=== PATIENT | female | born 1950 | race Caucasian/White ===

== ENCOUNTER 2021-02-12 13:50 | Emergency (ER) | payer MEDICARE, OTHER ==
--- NOTE | 2021-02-12 14:02 | ED Physician Documentation ---
PD HPI CHEST PAIN - Stated complaint Stated Complaint: HIGH BLOOOD PRESURE - Chief complaint Chief Complaint: Cardiac - History obtained from History obtained from: Patient - History of Present Illness Timing - onset: How many hours ago (5), Today Timing - onset during: Light activity (eating breakfast) Timing - duration: Hours (5) Timing - details: Abrupt onset, Still present (onset this morning of feeling of pain and pressure in chest, with subsequent extension to neck/back of head, and feeling lightheaded. 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 Had 6 month follow up stress test in Oct that was normal. Then she moved here.), Waxing and waning Quality: Tightness, Aching, Pain Location: Substernal, Upper back Radiation: Neck (left and right back of neck) Worsened by: No: Exertion, Inspiration Associated symptoms: Shortness of air, Feeling faint / dizzy, General Weakness, Palpitations. No: Nausea, Vomiting Similar symptoms before: Diagnosis (similar to her IL last year.) Recently seen: Clinic (regular PMD visit month or so ago for meds renewals.) Review of Systems Constitutional: denies: Fever, Chills Nose: denies: Rhinorrhea / runny nose, Congestion Throat: denies: Sore throat Cardiac: reports: Chest pain / pressure, Palpitations. denies: Pedal edema, Calf pain Respiratory: reports: Dyspnea. denies: Cough, Wheezing GI: denies: Nausea, Vomiting PD PAST MEDICAL HISTORY - Past Medical History Cardiovascular: IL Respiratory: None Neuro: None Endocrine/Autoimmune: None - Present Medications Home Medications: Ambulatory Orders Medication Instructions Recorded Confirmed ARIPiprazole [Abilify Mycite] 2 mg PO DAILY 02/12/21 02/12/21 Aspirin Chewable [[place] 81 mg PO DAILY 02/12/21 02/12/21 Aspirin] Atorvastatin Calcium [Lipitor] 80 mg PO DAILY 02/12/21 02/12/21 Clopidogrel [Plavix] 75 mg PO DAILY 02/12/21 02/12/21 Metoprolol Succinate [Toprol Xl] 25 mg PO DAILY 02/12/21 02/12/21 Ondansetron Odt [Zofran] 4 mg TL Q6H PRN #10 tablet 02/12/21 Venlafaxine HCl [Effexor Xr] 75 mg PO DAILY 02/12/21 02/12/21 - Allergies Allergies/Adverse Reactions: Allergies Allergy/AdvReac Type Severity Reaction Status Date / Time Sulfa (Sulfonamide Allergy Rash Verified 02/12/21 14:00 Antibiotics) - Living Situation Living Situation: reports: With family Living Arrangement: reports: At home - Social History Does the pt smoke?: No Does the pt drink ETOH?: No Does the pt have substance abuse?: No - Family History Family history: reports: CAD PD ED PE NORMAL - Vitals Vital signs reviewed: Yes - General General: Alert and oriented X 3, No acute distress, Well developed/nourished - HEENT HEENT: Moist mucous membranes, Pharynx benign - Neck Neck: Supple, no meningeal sign, No adenopathy - Cardiac Cardiac: RRR, No murmur - Respiratory Respiratory: Clear bilaterally, Other (no chestwall tenderness) - Abdomen Abdomen: Soft, Non tender - Derm Derm: Normal color, Warm and dry - Extremities Extremities: No edema, No calf tenderness / cord - Neuro Neuro: Alert and oriented X 3, No motor deficit, Normal speech Results - Vitals Vitals: Vital Signs - 24 hr 02/12/21 02/12/21 02/12/21 13:54 14:04 14:38 Temperature 37.2 C 99.0 C H Heart Rate 100 100 92 Respiratory 20 18 14 Rate Blood Pressure 150/108 H 150/94 H 151/88 H O2 Saturation 100 100 98 02/12/21 02/12/21 02/12/21 14:59 15:00 15:30 Temperature Heart Rate 108 H 101 H 101 H Respiratory 18 14 16 Rate Blood Pressure 118/78 114/81 H 132/80 H O2 Saturation 98 96 96 02/12/21 02/12/21 02/12/21 16:00 16:43 17:02 Temperature 36.3 C L 36.7 C Heart Rate 97 96 92 Respiratory 18 14 24 Rate Blood Pressure 126/81 H 114/86 H 126/86 H O2 Saturation 97 97 98 Oxygen O2 Source Room air - EKG (time done) on arival Rhythm: NSR Central: Normal Intervals: Normal [place] QRS: Normal Ischemia: Normal ST segments. No: ST elevation c/w ischemia, ST depression - Labs Labs: Laboratory Tests 02/12/21 02/12/21 02/12/21 14:05 14:05 14:05 WBC 7.6 RBC 4.53 Hgb 14.5 Hct 44.0 MCV 97.1 MCH 32.0 H MCHC 33.0 RDW 12.4 Plt Count 302 MPV 9.9 Neut # (Auto) 5.5 Lymph # (Auto) 1.6 [place] # (Auto) 0.4 Eos # (Auto) 0.1 Baso # (Auto) 0.1 Absolute Nucleated RBC 0.00 Nucleated RBC % 0.0 PT INR APTT D-Dimer Sodium 139 Potassium 3.8 Chloride 101 Carbon Dioxide 25 Anion Gap 13.0 BUN 9 Creatinine 0.5 Estimated GFR (MDRD) 122 Glucose 107 H Calcium 9.9 Total Bilirubin 0.9 AST 38 ALT 39 Alkaline Phosphatase 80 Troponin I High Sens 5.2 B-Natriuretic Peptide Total Protein 7.9 Albumin 4.8 Globulin 3.1 Albumin/Globulin Ratio 1.5 Lipase 22 02/12/21 02/12/21 14:05 14:05 WBC RBC Hgb Hct MCV MCH MCHC RDW Plt Count MPV Neut # (Auto) Lymph # (Auto) [place] # (Auto) Eos # (Auto) Baso # (Auto) Absolute Nucleated RBC Nucleated RBC % PT 11.5 INR 1.0 APTT 31.9 D-Dimer < 200.0 L Sodium Potassium Chloride Carbon Dioxide Anion Gap BUN Creatinine Estimated GFR (MDRD) Glucose Calcium Total Bilirubin AST ALT Alkaline Phosphatase Troponin I High Sens B-Natriuretic Peptide 20 Total Protein Albumin Globulin Albumin/Globulin Ratio Lipase - Rads (name of study) chest xray Radiology: Prelim report reviewed (no acute process), Final report received, See rad report chest aortic CT-A Radiology: Prelim report reviewed (no aneurysms nor dissections. no PE. Biapical scarring both lungs. No acute process. ), See rad report PD MEDICAL DECISION MAKING - ED course Complexity details: reviewed results, considered differential (chest discomfort and feeling pressure. Also having some neck pain. So could be GERD or something easy. Get labs for IL/CXR/PE, but also concern for aortic with pain in chest and neck/some head. ), d/w patient Departure - Departure Disposition: 01 Home, Self Care Clinical Impression: Chest discomfort, Nausea Condition: Stable Record reviewed to determine appropriate education?: Yes Follow-Up: Chao Huynh MD [Primary Care Provider] - Prescriptions: Ondansetron Odt [Zofran] 4 mg TL Q6H PRN #10 tablet PRN Reason: Nausea / Vomiting Comments: Not clear the cause of your symptoms. He may have a little bit of a intestinal illness with some nausea or esophageal spasm or irritation for example from reflux. I cannot say for sure. However I can say there is no signs of heart attack, heart failure, acute lung process, aortic aneurysms or dissection. We can exclude there is significant causes of chest symptoms. Stay well-hydrated. Continue usual medicines. Add ondansetron if needed for nausea. Recheck if persistent or recurrent symptoms over the next few days. Discharge Date/Time: 02/12/21 17:50
[2021-02-12 14:15] LABS: BASOPHILS # (AUTO) 0.1 10^3/uL (0.0-0.1); BASOPHILS % (AUTO) 0.7 %; EOSINOPHILS # (AUTO) 0.1 10^3/uL (0.0-0.7); EOSINOPHILS % (AUTO) 0.7 %; HGB - HEMOGLOBIN 14.5 g/dL (12.0-16.0); LYMPHOCYTES # (AUTO) 1.6 10^3/uL (1.5-3.5); LYMPHOCYTES % (AUTO) 21.1 %; MEAN CORPUSCULAR VOLUME 97.1 fL (81.0-99.0); MEAN PLATELET VOLUME 9.9 fL (7.9-10.8); MONOCYTES # (AUTO) 0.4 10^3/uL (0.0-1.0); MONOCYTES % (AUTO) 5.6 %; NEUTROPHILS # (AUTO) 5.5 10^3/uL (1.5-6.6); NEUTROPHILS % (AUTO) 71.5 %; PLT - PLATELET COUNT 302 10^3/uL (130-450); RED BLOOD COUNT 4.53 10^6/uL (4.20-5.40); RED CELL DISTRIBUTION WIDTH 12.4 % (12.0-15.0); WHITE BLOOD COUNT 7.6 x10^3/uL (4.8-10.8)
[2021-02-12 14:25] LABS: ALBUMIN 4.8 g/dL (3.2-5.5); ALBUMIN/GLOBULIN RATIO 1.5 (1.0-2.2); BILIRUBIN,TOTAL 0.9 mg/dL (0.2-1.0); CALCIUM 9.9 mg/dL (8.5-10.3); CREATININE 0.5 mg/dL (0.4-1.0); POTASSIUM 3.8 mmol/L (3.5-5.0); TOTAL PROTEIN 7.9 g/dL (6.7-8.2)
[2021-02-12] MEDS ORDERED: NITROGLYCERIN SL 0.4 MG TABLET SL STA (14:30)
[2021-02-12] MEDS ORDERED: SODIUM CHLORIDE 0.9% 1,000 ML IV STA (14:30)
[2021-02-12 14:47] LABS: PT - PROTHROMBIN TIME 11.5 secs (9.9-12.6)
[2021-02-12 14:54] LABS: PARTIAL THROMBOPLASTIN TIME 31.9 secs (24.9-33.3)
--- NOTE | 2021-02-12 14:55 | XRAY Report ---
PROCEDURE: Chest 1 View X-Ray INDICATIONS: Chest Pain TECHNIQUE: One view of the chest was acquired. COMPARISON: None FINDINGS: Surgical changes and devices: None. Lungs and pleura: No pleural effusions or pneumothorax. Lungs are clear. Mediastinum: Mediastinal contours appear normal. Heart size is normal. Bones and chest wall: No suspicious bony lesions. Overlying soft tissues appear unremarkable. IMPRESSION: No acute cardiopulmonary pathology. Reviewed by: Vladimir Peters MD on 02/12/2021 1:53 PM AKDT Approved by: Vladimir Peters MD on 02/12/2021 1:53 PM AKDT Station ID: [id number]
[2021-02-12 15:00] LABS: D-DIMER < 200.0 ng/mL (200.0-255.0)
[2021-02-12] MEDS ORDERED: IOPAMIDOL-300 100 ML VIAL IVP ONE (16:41)
[2021-02-12] MEDS ORDERED: IOPAMIDOL-300 100 ML VIAL ONE (16:41)
--- NOTE | 2021-02-12 17:10 | CT Report ---
PROCEDURE: ANGIO CHEST W/WO INDICATIONS: chest pain to neck pain, elevated BP CONTRAST: IV CONTRAST: Isovue 300 ml: 80 PO CONTRAST: *NO PO CONTRAST TECHNIQUE: After the administration of intravenous contrast, 2 mm thick sections acquired from the pulmonary api kerrie to the posterior costophrenic angles. 3-dimensional maximum intensity projection (MIP) coronal a nd sagittal reformats were then acquired through the thorax. For radiation dose reduction, the follow ing was used: automated exposure control, adjustment of mA and/or kV according to patient size. COMPARISON: Chest radiograph on the same date FINDINGS: Image quality: Excellent. Pulmonary arteries: Pulmonary arteries are normal in size, and demonstrate no intraluminal filling d efects to suggest central pulmonary embolism. Lungs and pleura: There is biapical scarring. Scattered atelectasis in periphery of bilateral mid to lower lung mccullough are seen. No pleural effusions or pneumothorax. Central and peripheral airways are patent. Mediastinum: Heart size is normal, without pericardial effusion. Borderline prominent mediastinal ly mph nodes are seen measures up to 9 mm in short axis diameter in right paratracheal space and 1 cm in short axis diameter in AP window. Mild atherosclerotic calcifications are seen in coronary vessels a nd thoracic aorta. Thoracic aorta is normal in caliber and enhancement. Esophagus is normal in calib er, without hiatal hernia. Bones and chest wall: No suspicious bony lesions. Degenerative disc disease throughout thoracic spin e is seen. No acute compression fracture or spondylolisthesis. Bilateral ribs are grossly intact.. T he thyroid is normal. No axillary or supraclavicular adenopathy. Abdomen: Visualized upper abdominal solid organs appear normal in the early arterial phase of enhanc ement. IMPRESSION: 1. No evidence of pulmonary emboli. No thoracic aortic aneurysm or dissection. 2. Biapical scarring and bilateral scattered scarring/atelectasis. No focal infiltrate, pleural effus ion or pneumothorax. Airway is patent. 3. Nonspecific borderline-enlarged mediastinal lymph nodes measures up to 1 cm in short axis diameter . Reviewed by: Vladimir Peters MD on 02/12/2021 4:09 PM AKDT Approved by: Vladimir Peters MD on 02/12/2021 4:09 PM AKDT Station ID: [id number]
[2021-02-12 19:19] VITALS: BP 126/86
== END 2021-02-12 17:50 | disposition home or self-care (01) ==
LOC: ED 13:50
DX: R07.89 Other chest pain (principal); R11.0 Nausea; M54.2 Cervicalgia; R42 Dizziness and giddiness; I25.2 Old myocardial infarction; Z95.5 Presence of coronary angioplasty implant and graft; Z79.02 Long term (current) use of antithrombotics/antiplatelets; Z79.82 Long term (current) use of aspirin; Z82.49 Family history of ischemic heart disease and other diseases of the circulatory system
CPT/HCPCS: 36415; 71045; 71275; 80053; 83690; 83880; 84484; 85025; 85379; 85610; 85730; 93005; 99284; A9270; Q9967